=== PATIENT | male | born 1995 | race Asian ===

== ENCOUNTER 2022-02-27 15:15 | Emergency (ER) | payer BC, SELFPAY ==
[2022-02-27 15:15] VITALS: BP 170/120; PULSE 111; RESP 22; O2SAT 100
[2022-02-27 15:19] VITALS: BP 170/120; PULSE 111; RESP 20; TEMP 36.8; O2SAT 95; BMI 25.8
[2022-02-27 16:00] VITALS: BP 151/91; PULSE 111; RESP 20; TEMP 36.8; O2SAT 95
[2022-02-27] MEDS: 0.9 % SODIUM CHLORIDE 1000 ml 1,000 ML IV (16:08)
[2022-02-27] MEDS: ONDANSETRON 2 MG/ML inj 4 MG IVP (16:08)
[2022-02-27 16:30] VITALS: BP 178/91; PULSE 92; RESP 20; TEMP 36.8; O2SAT 95
[2022-02-27 16:36] LABS: Basophils Percent Auto 0.2 % (0.0-3.0); Hematocrit 44.5 % (37.0-53.0); Hemoglobin* 14.6 gm/dL (13.5-17.5); Immature Granulocytes Abs Auto 0.04 K/uL (0.00-0.30); Lymphocytes Percent Auto 9.3 % (20-44); Mean Corpuscular HGB Conc 33 gm/dL (32-36); Mean Corpuscular Hemoglobin 27 pg (26-34); Mean Corpuscular Volume 83 fL (80-100); Monocytes Percent Auto 7.1 % (0.0-11.0); Neutrophils Percent Auto 82.1 % (42.0-72.0); Platelet Count* 268 K/uL (140-440); RDW Coefficient of Variation % 12.7 % (11.5-15.5); Red Blood Count 5.35 m/uL (4.30-5.90); White Blood Count* 11.51 K/uL (4.50-11.00)
--- NOTE | 2022-02-27 16:36 | ED.NURSE ---
Lab staff notified technical writer and editor that pt IV was infiltrated. 18G IV in pt L AC was running NS, did appear infiltrated. IV DC'd, catheter intact. Pt reported no pain at site after IV removed.
[2022-02-27 16:37] LABS: Slide Review Reflex No
[2022-02-27 16:43] LABS: Albumin* 5.2 g/dL (3.3-5.0)
[2022-02-27 16:44] LABS: Chloride* 104 mmol/L (96-114); Potassium* 5.5 mmol/L (3.6-5.1); Sodium* 137 mmol/L (135-149)
[2022-02-27 16:46] LABS: Alkaline Phosphatase* 56 U/L (40-150); Amylase* 101 U/L (18-89); Aspartate Amino Transferase* 60 U/L (12-35); Bilirubin Total* 1.3 mg/dL (0.1-1.5); Blood Urea Nitrogen* 16 mg/dL (5-24); Carbon Dioxide* 23 mmol/L (20-32); Est. Creatinine Clearance* 123.94; Estimated Glomerular Filt Rate 107 ml/min; Glucose* 126 mg/dL (60-115); Lipase* 48 U/L (23-300); Total Protein* 8.5 g/dL (6.0-8.3)
[2022-02-27 16:47] LABS: Alanine Aminotransferase* 33 U/L (4-50); Calcium* 9.9 mg/dL (8.4-10.6)
[2022-02-27 16:59] LABS: PCR FLU A Negative PCR FLU A (Negative); PCR FLU B Negative PCR FLU B (Negative)
[2022-02-27 17:00] VITALS: BP 135/80; PULSE 100; RESP 20; TEMP 36.8; O2SAT 95
--- NOTE | 2022-02-27 17:08 | ED.ABDPAIN ---
HPI - Abdominal Pain General Time Seen by Provider: 15:45 Date Seen: 02/27/22 Chief Complaint: Unspecified Complaint, Adult Stated Complaint: High blood pressure, short of breath Time Seen by Provider: 02/27/22 15:35 Source: patient and RN notes reviewed Limitations: no limitations History of Present Illness HPI narrative: Patient is a very pleasant 26-year-old male previously healthy who comes to the emergency room via EMS for evaluation regarding numbness and tingling of all of his extremities, rapid heart rate and rapid breathing as well as abdominal pain. States he had the onset of abdominal pain while he was working. He works as a cad developer and does agree that it was somewhat hot in his work area. He notes that he started experiencing numbness and tingling in his arms and then in his legs. He does agree that he was breathing quite fast. He denies any tingling around his mouth. He notes that on the way here he also began having a hard time breathing. Currently, when I enter the room, he has been here for a modest amount of time and has had resolution almost entirely of the tingling. He still notes that his abdomen hurts. He shows this to be mainly on the left. He did have 2 episodes of diarrhea earlier today. He does not know if there was any blood in it as he did not check. He has nausea without vomiting. He has not had fever. No recent travel. MD elicited complaint: abdominal pain Onset (ago): minute(s) Related Data Home Medications Medication Instructions Recorded Confirmed No Known Home Medications 02/27/22 02/27/22 Allergies Allergy/AdvReac Type Severity Reaction Status Date / Time No Known Allergies Allergy Verified 02/27/22 15:26 Review of Systems Status of ROS Reports: 6 or more systems reviewed and unremarkable except as noted in History and below Const Denies: fever or chills Eyes Denies: change in vision ENMT Reports: throat pain (Woke up with sore throat this morning.); Denies: neck pain or ear pain Cardio Reports: shortness of breath with exertion (EN route to the hospital now resolved); Denies: chest pain or palpitations Resp Reports: shortness of breath (EN route to the hospital now resolved) GI Reports: abdominal pain and nausea Denies: painful urination or urinary frequency Musculo Denies: back pain or neck pain Neuro Reports: numbness in extremities (Resolving at this time); Denies: headache [facility] Medical History No significant past medical history Surgical History No significant past surgical history Social History Smoking Status: Current every day smoker What tobacco products do you use: cigarettes Smoking packs per day: 1 Smoking cigarettes per day: 20.0 Do you use any of these nicotine containing products: None Second hand tobacco smoke exposure: No How often do you have a drink containing alcohol: monthly or less AUDIT-C Alcohol total score: 1 Non-prescribed substance use: denies use service: No Exam Const: Vital Signs, click to edit/add: Vital Signs - 24 hr 02/27/22 15:15 02/27/22 15:19 02/27/22 16:00 Temperature 98.2 F 98.2 F Pulse Rate [Left P ulse Oximeter] 111 H 111 H 111 H Respiratory Rate 22 20 20 Blood Pressure [Le ft Upper Arm] 170/120 H 170/120 H 151/91 H Pulse Oximetry 100 95 95 02/27/22 16:30 02/27/22 17:00 Temperature 98.2 F 98.2 F Pulse Rate [Left P ulse Oximeter] 92 100 Respiratory Rate 20 20 Blood Pressure [Le ft Upper Arm] 178/91 H 135/80 Pulse Oximetry 95 95 Documenting provider has reviewed patient's vital signs: yes Common normals: no apparent distress and oriented x3 Exam limitations: no altered mental status General appearance: cooperative, comfortable and well developed HENMT: Common normals: normocephalic and head/scalp atraumatic Head and scalp: normocephalic and atraumatic Face and sinus: normal facial exam Mouth: oral and palatal mucosa normal Eye: Common normals: PERRL General eye: normal appearance of both eyes Pupil: PERRL Neck & C-Spine: Common normals: full ROM, no lymphadenopathy and supple Cervical spine: cervical ROM normal Lymph: Lymphatic: no lymphadenopathy noted Resp: Common normals: normal respiratory effort and clear to auscultation bilaterally Auscultation: clear to auscultation bilaterally Cardio: Common normals: regular rate and regular rhythm Rate: regular rate Rhythm: regular rhythm GI: Common normals: soft to palpation, non-tender (Mild tenderness diffusely) and no masses Palpation: soft : Common normals: no CVA tenderness Bladder/kidney exam: no CVA tenderness Back & Pelvis: Common normals: no CVA tenderness Extremity: Common normals: full ROM and no pedal edema Neuro: Ty Coma Scale: document GCS findings Ty coma scale eye opening: Spontaneous (4) Ty coma scale verbal response: Orientated (5) Ty coma scale motor response: Obey commands (6) Ty coma scale total score: 15 Common normals: oriented x3, CN's II-XII intact bilaterally, moves all extremities, no focal motor deficits and no sensory deficits noted Motor exam: strength 5/5 throughout Psych: Common normals: mental status grossly normal Course Course Hospital Course: Patient describes numbness and tingling of all extremities as well as shortness of breath that suggests hyperventilation and panic attack. However, he notes that this all started with abdominal pain and is on domicile pain is persisting. History also suggest 2 episodes diarrhea earlier in the day with persisting nausea. Patient will be swabbed for COVID, strep if COVID negative, labs will be drawn including a CBC, comprehensive panel, urinalysis. Patient is given 1 L of normal saline and 4 mg of IV Zofran. Reevaluation(s) Reevaluation #1: Patient is noted to have resolution of his abdominal pain after Zofran. He also states that his feeling is all returned. Blood pressure at this time is 135/80 but upon his arrival he was 170/120. Heart rate is now in the 90s. Time: 18:01 Reevaluation #2: Patient is informed of his reassuring labs at this time. White count is minimally elevated 11.51 amylase is elevated at 101 but lipase is within normal limits he is negative for COVID at this time. Unfortunately he does have a potassium of 5.5. I strongly suspect this is hemolyzed but will need to recheck. He is understanding of that. Reevaluation #3: Repeat potassium is 4.3. Vital Signs Vital signs: Initial Vital Signs Pulse Rate 111 H 02/27/22 15:15 Pulse Strength 3+ Normal 02/27/22 15:15 Respiratory Rate 22 02/27/22 15:15 Respiratory Effort 02/27/22 15:15 Respiratory Depth Normal 02/27/22 15:15 Blood Pressure 170/120 H 02/27/22 15:15 Blood Pressure Mean 136 02/27/22 15:15 Blood Pressure Position Supine 02/27/22 15:15 Pulse Oximetry 100 02/27/22 15:15 Oxygen Delivery Method 02/27/22 15:15 Vital Signs Pulse Rate 111 H 02/27/22 15:15 Respiratory Rate 22 02/27/22 15:15 Blood Pressure 170/120 H 02/27/22 15:15 Pulse Oximetry 100 02/27/22 15:15 Temperature 98.2 F 02/27/22 17:00 Pulse Rate 100 02/27/22 17:00 Respiratory Rate 20 02/27/22 17:00 Blood Pressure 135/80 02/27/22 17:00 Pulse Oximetry 95 02/27/22 17:00 MDM - Abdominal Pain MDM Narrative Medical decision making narrative: 1. Hyperventilation-patient is noted to have the onset of numbness and tingling of his arms and then legs and was unable to move his hands. I did not witness this but he is describing carpal pedal spasm secondary to hyperventilation. He is working in an environment which is not air conditioned and very hot. He also had 2 episodes of diarrhea earlier so I am wondering if this was a combination of events including heat, dehydration, and a panic reaction. He has had complete resolution of his numbness and tingling. He has no neuro deficits at this time. 2. Abdominal pain-patient's white count is slightly elevated at 11.51 but his lipase is normal even though he has a slight elevation of amylase 101. His abdominal pain is now resolved after the use of Zofran 4 mg IV. No red flag exam findings to include rebound tenderness mass or otherwise. Return for worsening symptoms he is negative for COVID. 3. Hyperkalemia-patient has a potassium of 5.5 although I suspect this is a false elevation. We are rechecking it at this time. 4. Hypertension-patient and his significant other tell me that he has had repeated episodes of high blood pressure over 40 for many years. The age of 26 this is somewhat unusual. Have advised him to discontinue smoking. More importantly I think they should start taking blood pressure measurements twice a day until they follow-up with their primary clinic. He may need to start on blood pressure medications. I do not feel the need to start those out of the ED tonight as I would not be able to follow up with him. 4. Disposition-home pending normal potassium. Addendum: Repeat potassium is 4.3. Patient is feeling better. Did receive 1 L of normal saline as well as Zofran. No abdominal pain. Patient will be discharged home. Again he is to follow up with his primary MD for evaluation of hypertension. Lab Data Attestation: I reviewed the patient's lab results. Labs: Lab Results 02/27/22 02/27/22 02/27/22 Range/Units 15:20 15:20 16:00 WBC 11.51 H (4.50-11.00) K/uL RBC 5.35 (4.30-5.90) m/uL Hgb 14.6 (13.5-17.5) gm/dL Hct 44.5 (37.0-53.0) % MCV 83 (80-100) fL MCH 27 (26-34) pg MCHC 33 (32-36) gm/dL RDW Coeff of Zehra 12.7 (11.5-15.5) % Plt Count 268 (140-440) K/uL Neut % (Auto) 82.1 H (42.0-72.0) % Lymph % (Auto) 9.3 L (20-44) % [place] % (Auto) 7.1 (0.0-11.0) % Eos % (Auto) 1.0 (0.0-7.0) % Baso % (Auto) 0.2 (0.0-3.0) % Neut # (Auto) 9.40 H (1.7-7.0) K/uL Lymph # (Auto) 1.10 (0.90-2.90) K/uL [place] # (Auto) 0.80 (0.00-0.90) K/UL Eos # (Auto) 0.10 (0.00-0.50) K/uL Baso # (Auto) 0.00 (0.00-0.30) K/uL Abs Immat Gran (auto) 0.04 (0.00-0.30) K/uL Sodium 137 (135-149) mmol/L Potassium 5.5 H (3.6-5.1) mmol/L Chloride 104 (96-114) mmol/L Carbon Dioxide 23 (20-32) mmol/L BUN 16 (5-24) mg/dL Creatinine 1.0 (0.5-1.5) mg/dL Estimated Creat Clear 123.94 Estimated GFR 107 ml/min Glucose 126 H (60-115) mg/dL Calcium 9.9 (8.4-10.6) mg/dL Total Bilirubin 1.3 (0.1-1.5) mg/dL AST 60 H (12-35) U/L ALT 33 (4-50) U/L Alkaline Phosphatase 56 (40-150) U/L Total Protein 8.5 H (6.0-8.3) g/dL Albumin 5.2 H (3.3-5.0) g/dL Amylase 101 H (18-89) U/L Lipase 48 (23-300) U/L SARS-CoV-2 (PCR) Negative SARS-CoV-2 (Negative) Influenza Type A (PCR) Negative PCR FLU A (Negative) Influenza Type B (PCR) Negative PCR FLU B (Negative) 02/27/22 Range/Units 18:45 WBC (4.50-11.00) K/uL RBC (4.30-5.90) m/uL Hgb (13.5-17.5) gm/dL Hct (37.0-53.0) % MCV (80-100) fL MCH (26-34) pg MCHC (32-36) gm/dL RDW Coeff of Zehra (11.5-15.5) % Plt Count (140-440) K/uL Neut % (Auto) (42.0-72.0) % Lymph % (Auto) (20-44) % [place] % (Auto) (0.0-11.0) % Eos % (Auto) (0.0-7.0) % Baso % (Auto) (0.0-3.0) % Neut # (Auto) (1.7-7.0) K/uL Lymph # (Auto) (0.90-2.90) K/uL [place] # (Auto) (0.00-0.90) K/UL Eos # (Auto) (0.00-0.50) K/uL Baso # (Auto) (0.00-0.30) K/uL Abs Immat Gran (auto) (0.00-0.30) K/uL Sodium (135-149) mmol/L Potassium 4.3 (3.6-5.1) mmol/L Chloride (96-114) mmol/L Carbon Dioxide (20-32) mmol/L BUN (5-24) mg/dL Creatinine (0.5-1.5) mg/dL Estimated Creat Clear Estimated GFR ml/min Glucose (60-115) mg/dL Calcium (8.4-10.6) mg/dL Total Bilirubin (0.1-1.5) mg/dL AST (12-35) U/L ALT (4-50) U/L Alkaline Phosphatase (40-150) U/L Total Protein (6.0-8.3) g/dL Albumin (3.3-5.0) g/dL Amylase (18-89) U/L Lipase (23-300) U/L SARS-CoV-2 (PCR) (Negative) Influenza Type A (PCR) (Negative) Influenza Type B (PCR) (Negative) Discharge Plan Discharge Clinical Impression: Hyperventilation, Resolved abdominal pain, Hypertension Patient Disposition: Home, Self-Care Additional Instructions: Recommend pushing fluids. Recommend staying hydrated as much as possible and taking frequent breaks and a very warm environment at your work. Follow-up with a primary MD or clinic for blood pressure recheck. Until that appointment check blood pressure twice daily. You should sit for a few minutes and then take blood pressure and record it and I block. Return to the emergency room for increasing abdominal pain, vomiting, fever and as needed. Activity Level: Activity as Tolerated Prescriptions: No Action No Known Home Medications 0RF Follow Up/Referrals: Provider,Not a Local [Primary Care Provider] - Stand Alone Forms: [employer] Info Instructions
[2022-02-27 17:16] LABS: SARS PCR* Negative SARS-CoV-2 (Negative)
[2022-02-27 19:05] LABS: Potassium* 4.3 mmol/L (3.6-5.1)
== END 2022-02-27 19:27 | disposition home or self-care (01) ==
PROVIDERS: Emergency Provider Family Medicine
DX: R06.4 Hyperventilation (principal); R10.9 Unspecified abdominal pain; I10 Essential (primary) hypertension
CPT/HCPCS: 36415; 80053; 81003; 82150; 83690; 84132; 85025; 87502; 87635; 96374; 99284; J2405; J7030